=== PATIENT | male | born 1985 | race African-American/Black ===

== ENCOUNTER 2018-11-06 20:07 | Emergency (ER) | payer OTHER ==
[~2018-11-06] VITALS: Ht 167.6 cm; Wt 72.6 kg
[2018-11-06] MEDS ORDERED: NORCO 5-325 TA1 EACH PO (21:14)
[2018-11-06] MEDS ORDERED: BACTRIM DS TAB1 EACH PO (21:14)
[2018-11-06 21:37] VITALS: BP 131/75
== END 2018-11-06 21:40 | disposition home or self-care (01) ==
LOC: ER 20:07
DX: L02.211 Cutaneous abscess of abdominal wall (principal)